=== PATIENT | female | born 1990 | race Caucasian/White ===

== ENCOUNTER 2021-01-23 07:10 | Outpatient (CLI) | payer OTHER, SELFPAY ==
[2021-01-23 07:39] LABS: Glucose Fasting 97 mg/dL (70-99)
[2021-01-23 08:49] LABS: Glucose 1 Hour 137 mg/dL (<180)
[2021-01-23 09:46] LABS: Glucose 2 Hour 130 mg/dL (<155)
[2021-01-23 10:32] LABS: Glucose 3 Hour 118 mg/dL (<140)
== END 2021-01-23 07:11 | disposition home or self-care (01) ==
LOC: CHSLAB 07:14
PROVIDERS: Visit Provider Advanced Practice Midwife
DX: R73.09 Other abnormal glucose (principal)
CPT/HCPCS: 36415; 82951; 82952

== ENCOUNTER 2021-03-19 15:00 | Outpatient (CLI) | payer OTHER, SELFPAY ==
--- NOTE | ~2021-03-19 | US_ITS ---
EXAMINATION: US OB /maternal detail DATE: 03/19/2021 15:57 INDICATION: Second trimester anatomic survey TECHNIQUE: Real-time ultrasound of the pelvis was performed. COMPARISON: None. FINDINGS: There is a thin echogenic band in the anterior aspect of the amniotic cavity. There is a single livin g fetus in vertex presentation. The placenta is posterior and 5.7 cm from the internal cervical os. F etal heart rate is 145 beats per minute (bpm). cardiac activity and movement are noted. The amniotic fluid index is subjectively normal. The cardiac outflow tracts are not demonstrated. The following anatomy was identified as normal : 4 chamber heart 3 vessel cord cord insertion kidneys urinary bladder stomach spine diaphragm ventricles cisterna magna cerebellum The following biometric data were obtained: Biparietal diameter (BPD): 4.71 cm; head circumference (HC): 7.5 cm; abdominal circumference (AC): 13 .9 cm; femur length (FL): 3.0 cm. These measurements are concordant. Estimated weight is 293 g +/- 44 g, which correlates with the 47th percentile when 08/10/2021 is used as estimated date of delivery. As single measurements, these parameters are each equal to the following estimated gestational ages w ith ranges of +/- 2 standard deviations: BPD: 20 weeks 3 days +/- 1 weeks 5 days. HC: 20 weeks 0 days +/- 1 weeks 3 days. AC: 19 weeks 3 days +/- 2 weeks 0 days. FL: 19 weeks 2 days +/- 1 weeks 6 days. estimated gestational age based solely on measurements from this exam is 19 weeks 6 days +/- 1 weeks 3 days. IMPRESSION: 1. Single living fetus in vertex presentation. 2. Estimated weight is 293 g +/- 44 g, which correlates with the 47th percentile when 08/10/2021 is used as estimated date of delivery. 3. Thin echogenic structure in the amniotic cavity concerning for amniotic band versus uterine synech iae. Reviewed, dictated and finalized at location A. IMPRESSION: 1. Single living fetus in vertex presentation. 2. Estimated weight is 293 g +/- 44 g, which correlates with the 47th per centile when 08/10/2021 is used as estimated date of delivery. 3. Thin echogenic structure in the amniotic cavity concerning for amniotic band versus uterine synechiae.
== END 2021-03-19 15:01 | disposition home or self-care (01) ==
LOC: CHSIMG 15:02
PROVIDERS: Visit Provider Obstetrics & Gynecology
DX: Z36.9 Encounter for antenatal screening, unspecified (principal)
CPT/HCPCS: 76805

== ENCOUNTER 2021-05-25 07:14 | Outpatient (CLI) | payer OTHER, SELFPAY ==
[2021-05-25 07:54] LABS: Glucose Fasting 94 mg/dL (70-99)
[2021-05-25 09:05] LABS: Glucose 1 Hour 166 mg/dL (<180)
[2021-05-25 09:49] LABS: Glucose 2 Hour 124 mg/dL (<155)
[2021-05-25 10:43] LABS: Glucose 3 Hour 104 mg/dL (<140)
== END 2021-05-25 07:15 | disposition home or self-care (01) ==
LOC: CHSLAB 07:18
PROVIDERS: PCP Obstetrics & Gynecology; Visit Provider Advanced Practice Midwife
DX: O99.810 Abnormal glucose complicating pregnancy (principal)
CPT/HCPCS: 36415; 82951; 82952

== ENCOUNTER 2021-09-16 03:30 | Emergency (ER) | payer OTHER, SELFPAY ==
--- NOTE | ~2021-09-16 | CT_ITS ---
EXAMINATION: CT abdomen pelvis w con DATE: 09/16/2021 04:51 INDICATION: Upper abdominal pain. 6 weeks . TECHNIQUE: Computed tomography (CT) of the abdomen and pelvis was performed with 100 cc Omnipaque 350 intravenous contrast. The dose-length product was 1269.42 mGy-cm. Automated exposure control and ite rative reconstruction technique were employed. COMPARISON: CT dated 09/16/2021. FINDINGS: Lung bases are unremarkable. No significant pleural or pericardial effusion. Heart size nor mal. The liver, spleen, pancreas, adrenal glands and kidneys are unremarkable. No hydronephrosis. Nor mal appendix. No abnormal pelvic masses or fluid collections. There is mild periportal edema, nonspec ific. Nonobstructive bowel gas pattern. Small fat-containing umbilical hernia. No free air or free fl uid. No significant vascular abnormality. No lymphadenopathy. No acute osseous abnormality. IMPRESSION: 1. No acute abdominal abnormality. Reviewed, dictated and finalized at location B.
[2021-09-16 03:30] VITALS: BP 114/69; PULSE 72; RESP 20; TEMP 36.4; O2SAT 100
--- NOTE | 2021-09-16 03:49 | ED.ABDPAIN ---
HPI - Abdominal Pain General Chief Complaint: Abdominal Pain Stated Complaint: abd/lower back pain Time Seen by Provider: 09/16/21 03:32 Mode of arrival: ambulatory Limitations: no limitations History of Present Illness MD elicited complaint: abdominal pain Pertinent past history: other (post- x 6 weeks.) Onset (ago): hour(s) (1) Pain Consistency: constant and colicky Location: epigastric, LUQ and RUQ Severity: moderate Pain scale (0-10): 7 Quality: cramping, aching, fullness and dull Radiation: back Migration to: no migration Exacerbating factors: nothing Relieving factors: nothing Associated symptoms: nausea Treatments prior to arrival: other (none) Related Data Patient : No Allergies Allergy/AdvReac Type Severity Reaction Status Date / Time No Known Allergies Allergy Verified 09/16/21 03:38 Review of Systems Review of Systems: All systems reviewed & are unremarkable except as noted in HPI and below PMFSH Past Medical History Medical History Abdominal pain in female patient Dyskinesia Heart murmur Congenital heart disease Exam Const: General: no acute distress and alert Nutritional Appearance: obese Orientation/consciousness: patient oriented x3 Limitations: no limitations HENMT: Head: normal to inspection Ears: external ears normal, TM's normal bilaterally and EAC's normal General nose exam: Normal external nose present and Normal nares present Face and sinus: normal facial exam Mouth: Yes lip normal and Yes moist mucous membranes Teeth and gingiva: dentition normal Eyes: Conjunctivae: conjunctivae normal Pupils: Equal, round and reactive pupils present EOM: EOMs intact bilaterally Neck: Neck: normal visual inspection and no lymphadenopathy Other: supple Chest: Chest palpation & inspection: normal inspection of the chest Resp: Effort & Inspection: normal respiratory effort Auscultation: clear to auscultation bilaterally Cardio: Rate: regular rate Rhythm: regular rhythm GI: GI Palp: Yes Soft to palpation and Yes Tenderness to palpation present (GI) (RUQ and epigastrium) Auscultation: normal bowel sounds : General: Yes bladder normal to palpation and Yes no CVA tenderness Back/Spine/Pelvis: Back: no CVA tenderness Skin: General skin exam: normal color and no jaundice Rashes: no rashes Neuro: General: patient oriented x3, moves all extremities, no meningeal signs, no focal motor deficits and CN's II-XI intact bilaterally Extrem: General: normal to inspection and no pedal edema Psych: Appearance: grossly normal and well kempt Mental Status: mental status grossly normal Affect: normal affect Attitude: cooperative Thought content: Yes Normal thought content present Course Course Emergency Course: Pt was stable in the ED, with less abdominal pain. Reevaluation(s) Reevaluation #1: VSS. pt delayed analgesia. Date: 09/16/21 Time: 04:25 Vital Signs Vital signs: Vital Signs Temperature 36.4 C 09/16/21 03:30 Pulse Rate 72 09/16/21 03:30 Respiratory Rate 20 09/16/21 03:30 Blood Pressure 114/69 09/16/21 03:30 Pulse Oximetry 100 09/16/21 03:30 Temperature 36.4 C 09/16/21 03:30 Pulse Rate 66 09/16/21 04:58 Respiratory Rate 16 09/16/21 04:58 Blood Pressure 112/75 09/16/21 04:58 Pulse Oximetry 100 09/16/21 04:58 MDM - Abdominal Pain Differential Diagnosis Differential diagnosis: Likely abdominal pain, acute appendicitis, calculus of kidney, gastroenteritis and small bowel obstruction Medical Records Attestation: I reviewed the patient's medical records. Lab Data Attestation: I reviewed the patient's lab results. Result diagrams: 09/16/21 04:05 09/16/21 04:05 Labs: Lab Results 09/16/21 09/16/21 09/16/21 Range/Units 03:53 04:05 04:05 WBC 8.5 (4.8-10.8) K/mm3 RBC 4.44 (4.20-5.40) M/mm3 Hgb 13.1 (12.0-15.0) g/dL Hct 39.1 (
[2021-09-16 04:10] LABS: Basophils Absolute Auto 0.03 K/mm3 (0.00-0.10); Basophils Percent Auto 0.4 % (0.0-1.0); Eosinophils Absolute Auto 0.19 K/mm3 (0.02-0.50); Eosinophils Percent Auto 2.2 % (1.0-6.0); Hematocrit 39.1 % (35.0-49.0); Hemoglobin 13.1 g/dL (12.0-15.0); Immature Granulocyte Absolute 0.03 K/mm3 (0.00-0.00); Immature Granulocyte Percent A 0.4 % (0.0-0.0); Mean Corpuscular HGB Conc 33.5 g/dL (32.0-36.0); Mean Corpuscular Hemoglobin 29.5 pg (27.0-31.0); Mean Corpuscular Volume 88.1 fL (78.0-102.0); Mean Platelet Volume 9.1 fl (9.2-11.8); Monocytes Absolute Auto 0.72 K/mm3 (0.10-0.90); Monocytes Percent Auto 8.5 % (2.0-11.0); Neutrophils Absolute Auto 4.7 K/mm3 (1.7-7.2); Neutrophils Percent Auto 54.5 % (50.0-70.0); Platelet Count Result 236 K/mm3 (150-420); Red Blood Count 4.44 M/mm3 (4.20-5.40); Red Cell Distribution Width 13.6 % (11.6-14.4); White Blood Count 8.5 K/mm3 (4.8-10.8)
[2021-09-16] MEDS: ONDANSETRON INJ 4 MG/2 ML VIAL IV PUSH ×2 (04:11→05:34)
[2021-09-16] MEDS: PANTOPRAZOLE SODIUM IV 40 MG VIAL IV PUSH (04:11)
[2021-09-16] MEDS: SODIUM CHLORIDE 0.9% IV 500 ML 999 ML IV CONT (04:11)
[2021-09-16 04:14] LABS: Add Urine Microscopic? NO; Appearance Urine Clear (Clear); Bilirubin Urine Negative (Negative); Blood Urine Negative (Negative); Color Urine Yellow (Yellow); Glucose Urine UA Negative (Negative); Ketones Urine Negative (Negative); Leukocyte Esterase Ur Negative LEU/UL (Negative); Nitrate Urine Negative (Negative); Protein Urine Negative (Negative); Specific Grav Ur >= 1.030 (1.010-1.020); Urobilinogen Urine 0.2 mg/dL (0.2-1.0)
[2021-09-16 04:16] LABS: SPREG INTERNAL CONTROL Positive; Serum Qual hCG Negative
[2021-09-16 04:21] LABS: Alanine Aminotransferase 70 U/L (14-59); Albumin Level 3.2 g/dL (3.4-5.0); Alkaline Phosphatase 101 U/L (46-116); Anion Gap 13 mmol/L (8-16); Aspartate Amino Transferase 41 U/L (15-37); Bilirubin,Total 0.6 mg/dL (0.00-1.00); Blood Urea Nitrogen 16 mg/dL (7-18); Calcium 8.2 mg/dL (8.5-10.1); Carbon Dioxide 24 mmol/L (21-32); Chloride 104 mmol/L (98-108); Estimated Glomerular Filt Rate > 60; Glucose 112 mg/dL (70-99); Lipase 88 U/L (73-393); Osmolality Calculated 294 mOsm/kg (285-295); Potassium 3.3 mmol/L (3.5-5.1); Sodium 141 mmol/L (136-145); Total Protein 6.2 g/dL (6.4-8.2)
[2021-09-16 04:24] LABS: Lactic Acid Reflex 1.8 mmol/L (0.4-2.0)
[2021-09-16 04:58] VITALS: BP 112/75; PULSE 66; RESP 16; O2SAT 100
[2021-09-16] MEDS: MORPHINE SULFATE (*CRX) 2 MG/ML INJ IV PUSH (05:32)
[2021-09-16] MEDS: POTASSIUM CHLORIDE 20 MEQ TABLET PO (05:57)
[2021-09-16] MEDS: MAG HYDROX/ALUMINUM HYD/SIMETH 30 ML, PHENobarb/HYOSCY/ATROPINE/SCOP 32.4 MG, LIDOCAINE... PO (05:58)
[2021-09-16 06:22] VITALS: BP 116/79; PULSE 64; RESP 18; O2SAT 99
== END 2021-09-16 06:34 | disposition home or self-care (01) ==
PROVIDERS: Emergency Provider Emergency Medicine; PCP Obstetrics & Gynecology
DX: R10.9 Unspecified abdominal pain (principal); K29.00 Acute gastritis without bleeding
CPT/HCPCS: 36415; 74177; 80053; 81003; 83605; 83690; 84703; 85025; 96361; 96374; 96375; 96376; 99284; A9270; C9113; J2270; J2405; J7040; Q9967

== ENCOUNTER 2021-09-20 08:18 | Outpatient (CLI) | payer OTHER, SELFPAY ==
--- NOTE | ~2021-09-20 | US_ITS ---
US right upper quadrant INDICATION: Right upper quadrant abdominal pain PROCEDURE: Realtime right upper abdominal ultrasound. COMPARISON: No prior studies for comparison. CT dated 09/16/2021 FINDINGS: The pancreas is normal without focal mass or pancreatic ductal dilation. Pancreatic tail is obscured by bowel gas. Liver echotexture is normal without focal mass or intrahepatic biliary dilata tion. There is normal directional flow in the portal vein. There is echogenic dependent material in the gallbladder lumen which may represent sludge or stones. Common bile duct measures 4.7 mm mm. No sonographic Deluca's sign. IMPRESSION: 1: Echogenic dependent material in the gallbladder lumen which may represent sludge or stones. No sec ondary findings to suggest cholecystitis. Reviewed, dictated and finalized at location B. IMPRESSION: 1: Echogenic dependent material in the gallbladder lumen which may represent sl udge or stones. No secondary findings to suggest cholecystitis.
== END 2021-09-20 08:19 | disposition home or self-care (01) ==
LOC: CHSIMG 08:19
PROVIDERS: PCP Nurse Practitioner Family; Visit Provider Nurse Practitioner Family
DX: R10.11 Right upper quadrant pain (principal)
CPT/HCPCS: 76705

== ENCOUNTER 2021-12-10 07:39 | Outpatient (CLI) | payer OTHER, SELFPAY ==
[2021-12-10 08:06] LABS: Basophils Absolute Auto 0.03 K/mm3 (0.00-0.10); Basophils Percent Auto 0.4 % (0.0-1.0); Eosinophils Absolute Auto 0.22 K/mm3 (0.02-0.50); Eosinophils Percent Auto 3.2 % (1.0-6.0); Hematocrit 38.1 % (35.0-49.0); Hemoglobin 12.6 g/dL (12.0-15.0); Immature Granulocyte Absolute 0.03 K/mm3 (0.00-0.00); Immature Granulocyte Percent A 0.4 % (0.0-0.0); Lymphocytes Absolute Auto 2.01 K/mm3 (1.10-4.50); Lymphocytes Percent Auto 29.7 % (18.0-42.0); Mean Corpuscular HGB Conc 33.1 g/dL (32.0-36.0); Mean Corpuscular Hemoglobin 30.2 pg (27.0-31.0); Mean Corpuscular Volume 91.4 fL (78.0-102.0); Mean Platelet Volume 8.9 fl (9.2-11.8); Monocytes Percent Auto 8.9 % (2.0-11.0); Neutrophils Absolute Auto 3.9 K/mm3 (1.7-7.2); Neutrophils Percent Auto 57.4 % (50.0-70.0); Platelet Count Result 254 K/mm3 (150-420); Red Blood Count 4.17 M/mm3 (4.20-5.40); Red Cell Distribution Width 13.2 % (11.6-14.4); White Blood Count 6.8 K/mm3 (4.8-10.8)
[2021-12-10 08:35] LABS: Alanine Aminotransferase 27 U/L (14-59); Albumin Level 3.3 g/dL (3.4-5.0); Alkaline Phosphatase 92 U/L (46-116); Anion Gap 5 mmol/L (8-16); Aspartate Amino Transferase 12 U/L (15-37); Bilirubin,Total 0.6 mg/dL (0.00-1.00); Blood Urea Nitrogen 14 mg/dL (7-18); Calcium 8.5 mg/dL (8.5-10.1); Carbon Dioxide 28 mmol/L (21-32); Chloride 107 mmol/L (98-108); Estimated Glomerular Filt Rate > 60; Glucose 110 mg/dL (70-99); Osmolality Calculated 291 mOsm/kg (285-295); Potassium 3.9 mmol/L (3.5-5.1); Sodium 140 mmol/L (136-145); Total Protein 6.8 g/dL (6.4-8.2)
== END 2021-12-10 07:40 | disposition home or self-care (01) ==
LOC: CHSLAB 07:45
PROVIDERS: PCP Family Medicine
DX: K80.50 Calculus of bile duct without cholangitis or cholecystitis without obstruction (principal); Z01.818 Encounter for other preprocedural examination
CPT/HCPCS: 36415; 80053; 85025